=== PATIENT | male | born 1985 | race Caucasian/White ===

== ENCOUNTER 2024-05-24 21:47 | Emergency (ER) | payer BC ==
[~2024-05-24] VITALS: Ht 167.6 cm; Wt 59.0 kg
[2024-05-24 22:10] VITALS: BP 131/84; TEMP 98.6; O2SAT 99
[2024-05-24] MEDS ORDERED: KETOROLAC TROMETHAMINE INJ 30 MG/ML VIAL ONE (22:24)
[2024-05-24] MEDS: KETOROLAC TROMETHAMINE INJ 60 MG/2 ML VIAL IM ONE (22:29)
[2024-05-25] MEDS ORDERED: NAPR-1009 PO (01:23)
== END 2024-05-25 01:32 | disposition home or self-care (01) ==
LOC: ER 21:53
DX: S86.811A Strain of other muscle(s) and tendon(s) at lower leg level, right leg, initial encounter (principal); W18.39XA Other fall on same level, initial encounter; Y93.89 Activity, other specified; Y92.89 Other specified places as the place of occurrence of the external cause; Y99.8 Other external cause status
CPT/HCPCS: 99283; 96372; 73552; J1885